=== PATIENT | male | born 1950 ===

== ENCOUNTER 2020-05-10 14:00 | Inpatient (IN) | payer MEDICARE ==
[2020-08-11 10:00] VITALS: BMI 32.5
[2020-08-12] MEDS ORDERED: Thrombin 5000 UNITS/5 ML VIAL ONE (06:54)
[2020-08-12] MEDS ORDERED: Sodium Chloride 0.9% 10 ML ONE (06:54)
[2020-08-12] MEDS ORDERED: Fentanyl 250 MCG/5 ML VIAL ONE (07:03)
[2020-08-12] MEDS ORDERED: SUGAMMADEX SODIUM 200 MG/2 ML VIAL ONE (09:07)
[2020-08-12] MEDS ORDERED: PACU-Morphine 4MG/ML VIAL SLOW IVP PRN (09:17)
[2020-08-12] MEDS ORDERED: Ondansetron HCl/PF 4 MG/2 ML Vial IVP PRN (09:17)
[2020-08-12] MEDS ORDERED: Promethazine HCl 25 MG/ML VIAL SLOW IVP PRN (09:17)
[2020-08-12] MEDS ORDERED: Morphine Sulfate 2 MG/ML SYRINGE SLOW IVP PRN (09:17)
[2020-08-12] MEDS ORDERED: HYDROmorphone 2 MG/ML VIAL SLOW IVP PRN (09:17)
[2020-08-12] MEDS ORDERED: Promethazine HCl 25 MG/ML VIAL IM PRN (09:17)
--- NOTE | 2020-08-12 10:01 | RAD ---
EXAM: Lumbar spine 2 views: HISTORY: Localization for laminotomy intraoperatively. COMPARISON: None FINDINGS: Crosstable lateral lumbar spine dated 8:23 AM 08/12/2020 metal probe overlies the L4 spinous process. Second image dated 08/12/2020 9:15 AM demonstrates metal probe overlying the posterior inferior L5 ve rtebral body level. No evidence for acute fracture or dislocation or significant acute osseous process. Alignment:No significant malalignment. Discs: Postoperative changes at L4-L5 and L5-S1 No evidence for a focal bone lesion. IMPRESSION: Intraoperative changes for localization purposes.
[2020-08-12] MEDS ORDERED: Fentanyl 100 MCG/2 ML VIAL ONE ×2 (10:18→12:00)
[2020-08-12] MEDS ORDERED: Mag-Al 1200 mg/1200 mg/30 ML UDCUP PO PRN (10:19)
[2020-08-12] MEDS ORDERED: Ondansetron PF 4 MG/2 ML Vial IVP PRN (10:19)
[2020-08-12] MEDS ORDERED: Bisacodyl 10 MG SUPP PR PRN (10:19)
[2020-08-12] MEDS ORDERED: Acetaminophen 325 MG TAB PO PRN (10:19)
[2020-08-12] MEDS ORDERED: HYDROmorphone 0.5 MG/0.5 ML SYRINGE ONE ×4 (10:51→11:31)
[2020-08-12] MEDS ORDERED: Lidocaine 1% PF 5 ML VIAL ONE (12:35)
[2020-08-12] MEDS ORDERED: Ondansetron PF 4 MG/2 ML Vial ONE (12:35)
[2020-08-12] MEDS ORDERED: PROPOFOL 200 MG/20 ML VIAL ONE (12:35)
[2020-08-12] MEDS ORDERED: Rocuronium Bromide 10 MG/ML (10ML VIAL) ONE (12:35)
[2020-08-12] MEDS ORDERED: PHENYLEPHRINE-NS 100 MCG/ML 10 ML SYRINGE ONE (12:35)
[2020-08-12] MEDS ORDERED: Ketorolac Tromethamine 30 MG/ML VIAL ONE (12:35)
[2020-08-12] MEDS ORDERED: Metoclopramide HCl 10 MG/2 ML VIAL ONE (12:35)
[2020-08-12] MEDS ORDERED: ePHEDrine 50 MG/ML VIAL ONE (12:35)
[2020-08-12] MEDS: HYDROcodone/Acetaminophen 7.5/325 mg Tablet PO PRN ×3 (12:51→23:27)
--- NOTE | 2020-08-12 13:39 | OP ---
DATE OF PROCEDURE: 08/12/2020 PREPROCEDURE DIAGNOSES: Multilevel lumbar stenosis with low back and leg pain with right lumbar disk extrusion. POSTPROCEDURE DIAGNOSES: Multilevel lumbar stenosis with low back and leg pain with right lumbar disk extrusion. PROCEDURES PERFORMED: 1. L3-L4, L4-L5 laminectomies, partial facetectomies, foraminotomies. 2. Use of operative microscope for right L4-L5 diskectomy. TRAINING INSTRUCTOR: Cora Curtis PA-C. DESCRIPTION OF PROCEDURE: After informed consent was obtained from the patient, the patient was brought to the OR. Proper patient, pause, and identification were carried out. The patient was positioned prone after general endotracheal anesthesia and all appropriate points were padded. We identified the L3, L4, L5 dorsal spines and lamina. A linear doyle was made over this region. This area was sterilely cleansed, prepared, and draped. Proper patient, pause, and identification were carried out. The wound was then opened with a combination of sharp, monopolar, and blunt dissection. We then proceeded to expose the L3, L4, L5 dorsal spines and lamina. Localization film confirmed our area of interest. We then performed L3, L4, L5 laminectomies, partial facetectomies, foraminotomies. We had excellent decompression of the common dural tube and nerve roots. We then brought the microscope in over the right L4-L5 segment, particularly the right L5 traversing nerve root, and a right L4-L5 diskectomy was performed. Copious irrigation occurred throughout as did maximizing hemostasis. The wound was then closed in anatomic layers following the sprinkle of vancomycin powder. The patient then emerged from anesthesia. There was no CSF leak. Job ID: [id number]
[2020-08-12] MEDS: tiZANidine HCl 4 MG TAB PO PRN ×2 (14:22→23:27)
[2020-08-12] MEDS: Morphine 2 MG/ML VIAL SLOW IVP PRN ×2 (14:22→20:47)
[2020-08-12] MEDS: CEFAZOLIN 2 GM in Premix Bag 1 BAG IVPB SCH ×2 (14:23→22:29)
[2020-08-12] MEDS: Sodium Chloride 0.9% 1,000 ML IV SCH (17:48)
[2020-08-12] MEDS: Ketorolac Tromethamine 0.5% Ophth Soln 3 ml Bottle EA EYE SCH (17:50)
[2020-08-12] MEDS: metFORMIN 500 MG TAB PO SCH (18:12)
[2020-08-12] MEDS: Milk Of Magnesia 30 ML UDCUP PO PRN (20:47)
[2020-08-12] MEDS: traZODone HCl 50 MG TAB PO SCH (22:26)
[2020-08-12] MEDS: Finasteride 5 MG TAB PO SCH (22:27)
[2020-08-12] MEDS: Tamsulosin HCl 0.4 MG CAP PO SCH (22:27)
[2020-08-12] MEDS: Gabapentin 400 MG CAP PO SCH (22:27)
[2020-08-12] MEDS: Atorvastatin Calcium 40 MG TAB PO SCH (22:28)
[2020-08-12] MEDS: Losartan 25 MG TAB PO SCH (22:28)
[2020-08-12] MEDS: hydrOXYzine 25 MG TAB PO SCH (22:29)
[2020-08-12] MEDS: Famotidine 20 MG TAB PO SCH (22:29)
[2020-08-12] MEDS: traMADol HCl 50 MG TAB PO PRN (22:32)
[2020-08-13] MEDS: Sodium Chloride 0.9% 1,000 ML IV SCH ×2 (00:40→14:24)
[2020-08-13] MEDS: Ketorolac Tromethamine 0.5% Ophth Soln 3 ml Bottle EA EYE SCH (00:48)
[2020-08-13] MEDS: Morphine 2 MG/ML VIAL SLOW IVP PRN ×3 (01:15→06:51)
[2020-08-13] MEDS: Acetaminophen/Codeine 30-300mg Tablet PO PRN ×2 (05:16→14:35)
--- NOTE | 2020-08-13 08:26 | PRG ---
DATE OF SERVICE: 08/13/2020 Patient is postoperative day #1, status post L3-L5 laminectomy by Dr. Salmon. Following the surgery, he was transitioned to the [facility] floor where his pain has been well controlled with p.o. medications, he is tolerating a regular diet. He has been walking short distances in his room. The patient did develop issues with urinary retention overnight. At the bedside, the patient is significantly uncomfortable. He had a bladder scan overnight with greater than 400 mL. I have advised the nurse to I and O cath the patient now x1. The patient has been afebrile overnight. He is uncomfortable due to his bladder and sitting up on the bedside. He has free active range of motion of all extremities. No focal motor weakness or reflex asymmetry. Incision is clean, dry, and intact. We will monitor his urinary output closely, but if he is unable to urinate again or develops ongoing retention, he may require placement of indwelling Brennan catheter. The patient lives alone and would benefit from inpatient rehab. I will have PT and OT see him as well as asked Case Management to assist with transition to inpatient rehabilitation at some point. Job ID: [id number]
[2020-08-13] MEDS: HYDROcodone/Acetaminophen 7.5/325 mg Tablet PO PRN ×4 (08:42→23:19)
[2020-08-13] MEDS: metFORMIN 500 MG TAB PO SCH ×2 (08:43→16:56)
[2020-08-13] MEDS: Gabapentin 300 MG CAP PO SCH (08:43)
[2020-08-13] MEDS: Amlodipine 10 MG TAB PO SCH (08:43)
[2020-08-13] MEDS: tiZANidine HCl 4 MG TAB PO PRN ×2 (10:53→19:30)
[2020-08-13] MEDS: traMADol HCl 50 MG TAB PO PRN ×2 (10:53→20:41)
--- NOTE | 2020-08-13 10:56 | PRG ---
DATE OF SERVICE: 08/13/2020 I seen and examined. I agree with Lory Cassidy's note on 08/13/2020. Mr. Kauffman is doing reasonably well. He has issues with urinary retention that we are treating with Flomax. Based on his current level of pain and the fact that he lives alone, I think he would be a good rehab candidate. We have made plans for rehab screen. Job ID: [id number]
[2020-08-13] MEDS: Fluticasone Propionate Nasal Spray 16 gm Bottle NASAL SCH (12:09)
[2020-08-13] MEDS: HumaLOG 300 UNITS/3 ML VIAL SC PRN ×2 (12:37→16:55)
[2020-08-13] MEDS: Morphine 4 MG/ML VIAL SLOW IVP PRN ×2 (16:56→22:31)
[2020-08-13] MEDS: Losartan 25 MG TAB PO SCH (20:27)
[2020-08-13] MEDS: Gabapentin 400 MG CAP PO SCH (20:28)
[2020-08-13] MEDS: Finasteride 5 MG TAB PO SCH (20:28)
[2020-08-13] MEDS: hydrOXYzine 25 MG TAB PO SCH (20:28)
[2020-08-13] MEDS: Atorvastatin Calcium 40 MG TAB PO SCH (20:29)
[2020-08-13] MEDS: Tamsulosin HCl 0.4 MG CAP PO SCH (20:29)
[2020-08-13] MEDS: Famotidine 20 MG TAB PO SCH (20:34)
[2020-08-13] MEDS: traZODone HCl 50 MG TAB PO SCH (20:35)
[2020-08-14] MEDS: Sodium Chloride 0.9% 1,000 ML IV SCH ×2 (02:08→14:37)
[2020-08-14] MEDS: tiZANidine HCl 4 MG TAB PO PRN ×3 (03:55→21:21)
[2020-08-14] MEDS: HYDROcodone/Acetaminophen 7.5/325 mg Tablet PO PRN ×5 (03:55→21:21)
[2020-08-14] MEDS: HumaLOG 300 UNITS/3 ML VIAL SC PRN ×3 (06:59→21:24)
[2020-08-14] MEDS: Acetaminophen/Codeine 30-300mg Tablet PO PRN ×5 (07:02→23:48)
[2020-08-14] MEDS: metFORMIN 500 MG TAB PO SCH ×2 (08:20→17:18)
[2020-08-14] MEDS: Amlodipine 10 MG TAB PO SCH (08:21)
[2020-08-14] MEDS: Gabapentin 300 MG CAP PO SCH (08:21)
[2020-08-14] MEDS: Fluticasone Propionate Nasal Spray 16 gm Bottle NASAL SCH (08:22)
--- NOTE | 2020-08-14 08:40 | PRG ---
DATE OF SERVICE: 08/14/2020 SUBJECTIVE: The patient is now postoperative day #2, status post L3-L5 lami by Dr. Salmon. He has been somewhat slow to mobilize, but he was able to work with Physical therapy yesterday. He has continued to have issues with urinary retention which required Brennan catheter placement overnight. OBJECTIVE: On exam this morning, the patient is sitting up comfortably. No acute distress. Free active range of motion of all extremities. No focal motor weakness. Incision is clean, dry, and intact. Brennan in place. PLAN: We will go ahead and remove his Brennan and anticipate he will need to undergo eventual void trial once he is at rehab. We will continue to mobilize him appropriately with the assistance of PT and OT and I feel that he can transition to rehab at any point in time. Job ID: [id number]
[2020-08-14] MEDS: Milk Of Magnesia 30 ML UDCUP PO PRN (18:41)
[2020-08-14] MEDS: Tamsulosin HCl 0.4 MG CAP PO SCH (20:31)
[2020-08-14] MEDS: traZODone HCl 50 MG TAB PO SCH (20:31)
[2020-08-14] MEDS: Famotidine 20 MG TAB PO SCH (20:31)
[2020-08-14] MEDS: Losartan 25 MG TAB PO SCH (20:32)
[2020-08-14] MEDS: hydrOXYzine 25 MG TAB PO SCH (20:32)
[2020-08-14] MEDS: Finasteride 5 MG TAB PO SCH (20:32)
[2020-08-14] MEDS: Atorvastatin Calcium 40 MG TAB PO SCH (20:32)
[2020-08-14] MEDS: Gabapentin 400 MG CAP PO SCH (20:33)
[2020-08-14] MEDS: traMADol HCl 50 MG TAB PO PRN (20:39)
[2020-08-15] MEDS: HYDROcodone/Acetaminophen 7.5/325 mg Tablet PO PRN ×4 (02:35→14:51)
[2020-08-15] MEDS: Sodium Chloride 0.9% 1,000 ML IV SCH ×2 (04:12→17:46)
[2020-08-15] MEDS: Acetaminophen/Codeine 30-300mg Tablet PO PRN ×3 (04:20→12:17)
[2020-08-15] MEDS: tiZANidine HCl 4 MG TAB PO PRN (06:37)
[2020-08-15] MEDS: Fluticasone Propionate Nasal Spray 16 gm Bottle NASAL SCH (08:22)
[2020-08-15] MEDS: Gabapentin 300 MG CAP PO SCH (08:22)
[2020-08-15] MEDS: Amlodipine 10 MG TAB PO SCH (08:23)
[2020-08-15] MEDS: metFORMIN 500 MG TAB PO SCH ×2 (08:23→16:56)
[2020-08-15] MEDS ORDERED: Magnesium Citrate 300 ML BOT PO SCH (08:30)
[2020-08-15] MEDS ORDERED: Diazepam 5 MG TAB PO PRN (08:31)
[2020-08-15] MEDS ORDERED: Docusate 100 MG CAP PO SCH (09:00)
[2020-08-15] MEDS: HumaLOG 300 UNITS/3 ML VIAL SC PRN ×2 (12:16→16:56)
[2020-08-15] MEDS ORDERED: tiZANidine HCl 4 MG TAB PO PRN (13:20)
[2020-08-15 16:48] VITALS: BP 136/53; TEMP 98.1
--- NOTE | 2020-08-15 20:57 | PRG ---
DATE OF SERVICE: 08/15/2020 The patient is postoperative day #3 after undergoing L3 through L5 laminectomies, partial facetectomies, and foraminotomies with a right L4-L5 diskectomy. He reports low back pain, exacerbated with movement. He states that he has walked short distances over the weekend; however, he has a significant increase in pain with doing so. He does report radiation of pain into both legs, primarily in the lateral and posterior aspects down the leg. He denies any bowel movements since surgery; however, notes that he is passing gas. He does have some abdominal discomfort. The patient has 5/5 strength throughout the bilateral lower extremity myotomes. Sensation to light touch is intact and equal throughout both legs and feet. His abdomen is soft, protuberant, but nondistended, and only mildly tender to palpation. The patient has an indwelling Brennan catheter in place this weekend due to urinary retention. Point of care glucose max was 138 yesterday. I have started the patient on Colace twice daily, and he will attempt magnesium citrate for constipation. Although, he has not had a bowel movement postoperatively, I am reassured that he is passing gas. The patient is stable to be discharged to inpatient rehab at any time. His Brennan catheter should remain in place for one week and may be removed by his primary care provider or Urology. Job ID: [id number]
== END 2020-08-15 18:10 | DRG 520 ==
LOC: SDC 08-12 05:49 → SJJU 08-12 10:15 → SDC 08-12 10:19 → SJJU 08-12 10:19 → EDSTATUS 08-12 14:00 → SJJU 08-15 16:02 → SDC 08-15 16:02
PROVIDERS: ADMIT Surgery; ATTEND Surgery
PROC: 0SB20ZZ Excision of Lumbar Vertebral Disc, Open Approach (ICD-10-PCS; principal; 2020-08-12)
PROC: 01NB0ZZ Release Lumbar Nerve, Open Approach (ICD-10-PCS; 2020-08-12)
PROC: 0T9B70Z Drainage of Bladder with Drainage Device, Via Natural or Artificial Opening (ICD-10-PCS; 2020-08-13)
DX: M48.062 Spinal stenosis, lumbar region with neurogenic claudication (principal); M51.26 Other intervertebral disc displacement, lumbar region; Z20.828 Contact with and (suspected) exposure to other viral communicable diseases; G47.33 Obstructive sleep apnea (adult) (pediatric); E78.5 Hyperlipidemia, unspecified; I10 Essential (primary) hypertension; J30.2 Other seasonal allergic rhinitis; G89.29 Other chronic pain; R33.9 Retention of urine, unspecified; Z99.89 Dependence on other enabling machines and devices; Z79.899 Other long term (current) drug therapy
CPT/HCPCS: 36416; 72100; J0690; J1170; J1885; J2270; J2405; J2704; J2765; J3010; J3370; J3490

== ENCOUNTER 2020-08-08 07:16 | Outpatient (CLI) | payer MEDICARE ==
[2020-08-08 17:22] LABS: #Basophils 0.1 10x3/uL (0.0-0.2); #Eosinphils 0.1 10x3/uL (0.0-0.5); #Monocytes 0.7 10x3/uL (0.0-1.1); #Neutrophils 6.6 10x3/uL (1.5-8.4); %Basophils 0.9 % (0.0-2.0); %Eosinophils 1.3 % (0.0-6.0); %Lymphocytes 19.7 % (18.0-47.0); %Neutrophils 70.4 % (40.0-75.0); Anion Gap 18 mmol/L (10-20); BUN (Urea Nitrogen) 7 mg/dL (8.4-25.7); Calc. Creatinine Clearance 0 mL/min (70-130); Carbon Dioxide 23 mmol/L (23-31); Chloride 102 mmol/L (98-107); Glucose 176 mg/dL (80-115); Hemoglobin 16.3 g/dL (14.0-18.0); Mean Corpuscular HGB CONC 33.3 G/DL (32.0-36.0); Mean Corpuscular Hemoglobin 28.8 PG (27.0-33.0); Mean Corpuscular Volume 86.4 fl (80.0-100.0); Platelet Count 246 10x3/uL (130-400); Potassium 4.6 mmol/L (3.5-5.1); RBC Distribution Width 13.6 % (11.5-14.5); Red Blood Cell (RBC) Count 5.66 10x6/uL (4.40-5.80); Sodium 138 mmol/L (136-145); White Blood Cell (WBC) Count 9.4 10x3/uL (4.5-11.0)
[2020-08-08 17:34] LABS: PTT 38.4 sec (22.0-33.0); Prothrombin Time 10.6 sec (9.5-12.1)
[2020-08-09 09:25] LABS: SARS-CoV-2 MS2 Positive; SARS-CoV-2 N Gene Negative; SARS-CoV-2 S Gene Negative; SARS-CoV-2 by NAA Not Detected (NotDetected); SARS-CoV-2 orf1ab Negative
--- NOTE | 2020-08-12 07:00 | EKG ---
Test Reason : Blood Pressure : / mmHG Vent. Rate : 070 BPM Atrial Rate : 070 BPM P-R Int : 230 ms QRS Dur : 136 ms QT Int : 406 ms P-R-T Axes : 056 -69 019 degrees QTc Int : 438 ms Sinus rhythm with 1st degree A-V block Right bundle branch block Left anterior fascicular block Bifascicular block Minimal voltage criteria for LVH, may be normal variant Abnormal ECG No previous ECGs available Confirmed by FRANCY BALBUENA MD ([id number]) on 08/12/2020 7:00:21 AM Referred By: ROBBIN Confirmed By:FRANCY BALBUENA MD
== END 2020-08-08 07:17 | disposition home or self-care (01) ==
LOC: LABBT 07:16
PROVIDERS: ATTEND Surgery
DX: Z01.818 Encounter for other preprocedural examination (principal); M48.062 Spinal stenosis, lumbar region with neurogenic claudication; M51.26 Other intervertebral disc displacement, lumbar region; Z20.828 Contact with and (suspected) exposure to other viral communicable diseases
CPT/HCPCS: 80048; 85025; 85610; 85730; U0003; 87635; 93005; 93010